=== PATIENT | male | born 1980 | race Caucasian/White ===

== ENCOUNTER 2023-01-09 21:06 | Emergency (ER) | payer OTHER ==
[~2023-01-09] VITALS: Ht 177.8 cm; Wt 68.0 kg
[2023-01-09] MEDS ORDERED: KETOROLAC TROMETHAMINE INJ 30 MG/ML VIAL ONE (22:27)
[2023-01-09] MEDS ORDERED: KETOROLAC TROMETHAMINE INJ 60 MG/2 ML VIAL IM ONE (22:30)
[2023-01-09 23:15] VITALS: BP 113/79; TEMP 98.1; O2SAT 100
== END 2023-01-09 23:16 | disposition home or self-care (01) ==
LOC: ER 21:08
DX: M25.562 Pain in left knee (principal); Z60.2 Problems related to living alone
CPT/HCPCS: 99283; 96372; J1885